=== PATIENT | male | born 1950 | race Caucasian/White ===

== ENCOUNTER 2016-09-26 12:47 | Inpatient (IN) | payer MEDICARE, OTHER ==
[~2016-09-26] VITALS: Ht 188 cm; Wt 101.8 kg
[~2016-09-26 12:47] MED LIST: ALLO100T30 PO; ASPI-515 PO; OXYC-302 PO; ZOLP10TA PO
[2016-09-26] MEDS ORDERED: SODIUM CHLORIDE FLUSH 10ML SYR IVF ONE (13:30)
[2016-09-26 13:54] LABS: BLOOD UREA NITROGEN 20 mg/dL (7-18)
[2016-09-26 14:02] LABS: ASPARTATE AMINO TRANSFERASE 27 U/L (15-37)
[2016-09-26 14:05] LABS: IS PT STATUS REG ER OR PRE ER? YES
[2016-09-26] MEDS ORDERED: ONDANSETRON 2MG/ML, 2ML ONE (14:44)
[2016-09-26] MEDS ORDERED: MORPHINE SULFATE 4 MG/ML, 1ML ONE (14:44)
[2016-09-26] MEDS ORDERED: ASPIRIN 81 MG TABLET CHEW ONE (14:49)
[2016-09-26] MEDS ORDERED: ASPIRIN 81 MG TABLET CHEW PO ONE (15:00)
[2016-09-26] MEDS ORDERED: MORPHINE SULFATE 4 MG/ML, 1ML IVPush PRN (15:00)
[2016-09-26] MEDS ORDERED: ONDANSETRON 2MG/ML, 2ML IVPush PRN (15:30)
[2016-09-26] MEDS ORDERED: LABETALOL 5MG/ML 40ML VIAL IVPush PRN (15:30)
[2016-09-26] MEDS ORDERED: POLYETHYLENE GLYCOL 17 GM PACKET PO PRN (15:30)
[2016-09-26] MEDS ORDERED: morphine SULFATE 10 MG/ML, 1ML IVPush PRN (15:30)
[2016-09-26] MEDS ORDERED: DOCUSATE 100 MG CAPSULE PO PRN (15:30)
[2016-09-26] MEDS ORDERED: ACETAMINOPHEN 325 MG TABLET PO PRN (15:30)
[2016-09-26] MEDS ORDERED: NITROGLYCERIN 0.4 MG BOTTLE (25 TABS) SL PRN (15:30)
[2016-09-26] MEDS ORDERED: HYDROcodone/APAP 5/325 TABLET PO PRN (15:30)
[2016-09-26] MEDS ORDERED: BISACODYL 10 MG SUPP PR PRN (15:30)
[2016-09-26] MEDS ORDERED: ENOXAPARIN 40 MG/0.4 ML SQ SCH (16:30)
[2016-09-26 17:04] VITALS: BP 126/86
[2016-09-26 18:37] VITALS: BP 106/65
[2016-09-26 18:39] LABS: IS PT STATUS REG ER OR PRE ER? NO
[2016-09-26] MEDS: SODIUM CHLORIDE FLUSH 3ML SYRINGE IVF SCH (21:00)
[2016-09-27 00:23] VITALS: BP 104/61
[2016-09-27 00:59] LABS: IS PT STATUS REG ER OR PRE ER? NO
[2016-09-27] MEDS ORDERED: ASPIRIN 325 MG TABLET EC PO SCH (06:00)
[2016-09-27] MEDS: SODIUM CHLORIDE FLUSH 3ML SYRINGE IVF SCH (08:00)
[2016-09-27] MEDS ORDERED: REGADENOSON 0.4 MG/5 ML SYRINGE ONE (08:09)
[2016-09-27] MEDS ORDERED: ALLOPURINOL 100 MG TABLET PO SCH (09:00)
[2016-09-27 12:33] VITALS: BP 115/71
== END 2016-09-27 14:45 | disposition home or self-care (01) | DRG 310 ==
LOC: ED 13:55 → EDIP 14:50 → 5SO 16:20
PROVIDERS: ADMIT Hospitalist; ATTEND Hospitalist
DX: I48.0 Paroxysmal atrial fibrillation (principal); G47.33 Obstructive sleep apnea (adult) (pediatric); M10.9 Gout, unspecified; I35.8 Other nonrheumatic aortic valve disorders; Z82.3 Family history of stroke; Z82.49 Family history of ischemic heart disease and other diseases of the circulatory system; Z83.3 Family history of diabetes mellitus; Z87.19 Personal history of other diseases of the digestive system; Z90.49 Acquired absence of other specified parts of digestive tract; Z80.9 Family history of malignant neoplasm, unspecified
CPT/HCPCS: 36415; 70450; 71010; 78452; 80053; 80061; 83690; 84443; 84484; 85025; 85379; 93005; 93017; 93306; 96374; J1650; J2785; A9502; C9898